=== PATIENT | female | born 1985 | race Caucasian/White ===

== ENCOUNTER 2018-01-19 12:12 | Emergency (ER) | payer OTHER ==
[~2018-01-19] VITALS: Ht 152.4 cm; Wt 77.1 kg
== END 2018-01-19 16:13 | disposition home or self-care (01) ==
LOC: ER 12:12
DX: S80.812A Abrasion, left lower leg, initial encounter (principal); W18.39XA Other fall on same level, initial encounter; Y93.89 Activity, other specified; Y92.89 Other specified places as the place of occurrence of the external cause; Y99.8 Other external cause status

== ENCOUNTER 2020-01-16 09:08 | Outpatient (CLI) | payer OTHER ==
[~2020-01-16 09:08] MED LIST: AMOX-CLAV 875-1 EACH PO; INTESTINEX680 M1 PO
== END 2020-01-16 09:30 | disposition home or self-care (01) ==
LOC: RX STUDY 09:08
PROVIDERS: ATTEND Obstetrics & Gynecology
DX: N97.0 Female infertility associated with anovulation (principal)